=== PATIENT | male | born 1955 | race Caucasian/White ===

== ENCOUNTER 2022-12-11 09:23 | Emergency (ER) | payer OTHER ==
--- OUTSIDE RECORDS SUMMARY | 2022-12-11 09:40 | XMS REPORT | Continuity of Care Document ---
:1955 Author Organization [facility] t Address [address] [place] [address] Care Team Providers Name Role Phone JONH FOURNIER Primary Care Physician Unavailable Nicolas Flores Attending Clinician Unavailable DR JONH FOURNIER Attending Clinician Unavailable [phone] Attending Clinician Unavailable JOSE ANTONIO PONCE Attending Clinician Unavailable JAN CRAIN Attending Clinician Unavailable MD JAN CRAIN Attending Clinician Unavailable DR JONH FOURNIER Admitting Clinician Unavailable JOSE ANTONIO PONCE Admitting Clinician Unavailable YANNI UMANZOR Admitting Clinician Unavailable MD YANNI UMANZOR Admitting Clinician Unavailable Payers Payer Name Policy Type Policy Number Effective Date Expiration Date S carmenza MEDICARE - OP [id number] MEDICARE - OP [id number] Problems Condition Condition Condition Status Onset Resolution Last Treating Co mments Source Name Details Category Date Date Treatment Clinician Date COVID-19 COVID-19 Disease Active Meth[facility] di virus virus - st detected detected 00:00: Hospit a 00 l COVID-19 COVID-19 Disease Active Meth[facility] di virus virus 11-13 st infection infection 00:00: Hosp fadumo 00 l Pneumonia Pneumonia Disease Active Met hodi due to due to 11-09 st COVID-19 COVID-19 00:00: Hospit a virus virus 00 l Allergies, Adverse Reactions, Alerts Allergy Allergy Status Severity Reaction(s) Onset Inactive Treating Comm ents Source Name Type Date Date Clinician No Known DA Active U 2020-10 [facility] Drug 0-15 Allergie 00:00: s 00 No Known DA Active U 2020-10 [facility] Drug 0-01 Allergie 00:00: s 00 Unable DA Active U [facility] to 9-30 Assess 00:00: 00 Social History Social Habit Start Date Stop Date Quantity Comments Source History SDOH [facility] History SDOH [facility] Frequency Hospita l History SDCA [facility] Drinks Alcohol intake 2020-11-13 2020-11-13 Current drinker [facility] 00:00:00 00:00:00 of alcohol Hospital (finding) Tobacco use and 2020-11-09 2020-11-09 Smokeless tobacco [facility] exposure 00:00:00 00:00:00 non-user Hospital Alcohol Comment 2020-11-09 2020-11-09 "a couple beers Meth odist 00:00:00 00:00:00 2-3 days per Hospital week" Sex Ass[birth year] At [birth year] [facility] 00:00:00 00:00:00 Hospital Smoking Status Start Date Stop Date Source Never smoked tobacco [facility] Medications Ordered Filled Start Stop Current Ordering Indication Dosage Frequency Signature Comments Components Source Medication Medication Date Date Medication? Clinician (SIG) Name Name ezetimibe Yes 10mg QD Take 10 mg Me [facility] (ZETIA) 10 1-[address] mg tablet 13:52: daily. Hospit a 23 l prasterone, Yes 50mg QD Take 50 mg Methodi dhea, 1-[address] (DHEA) 50 13:52: daily. Hospit a mg capsule 23 l cyanocobala Yes 1000ug Q7D Inject Me [facility] min 1,000 1-25 1,[address] mcg/mL 13:52: into the Hospita injection 23 shoulder, l thigh, or buttocks once a week. wednesdays testosteron Yes 1mL Q7D Inject 1 [facility] e cypionate 1-[address] 200 mg/mL 13:52: the Hospita kit 23 shoulder, l thigh, or buttocks once a week. ascorbic Yes 3000mg QD Take 3,000 M ethodi acid 1-[address] (VITAMIN C 13:52: mouth Hospit a ORAL) 23 daily. l diclofenac Yes Apply Method i (VOLTAREN) 1-[address] 1 % gel 13:52: as needed Hospi ta 23 (arthritis l ). albuterol Yes 2{puff} Q.[id number] Inhale 2 Methodi (PROAIR 1-[id number] HFA) 90 13:52: 67D every 1 Hospita mcg/actuati 23 (one) l on inhaler hour. Prn thyroid, Yes 30mg QD Take 30 mg Met hodi pork, 1-[address] ([place] 13:52: daily. Hospita Thyroid) 30 23 l mg tablet acetylcyste Yes 600mg Q.5D Take 600 M ethodi ine (NAC) 1-[address] 600 mg 13:52: mouth 2 Hospita capsule 23 (two) l times a day. diphenhydra Yes 30mL QD Take 30 mL Methodi mine HCl 1-[address] (ZZZQUIL 13:52: nightly. Hospi ta ORAL) 23 l LETROZOLE Yes 1mg Take 1 mg Met hodi ORAL 1-[address] 13:52: daily. Hospita 23 l ezetimibe Yes 10mg QD Take 10 mg Me thodi (ZETIA) 10 1-[address] mg tablet 13:52: daily. Hospit a 23 l prasterone, Yes 50mg QD Take 50 mg Methodi dhea, 1-[address] (DHEA) 50 13:52: daily. Hospit a mg capsule 23 l cyanocobala Yes 1000ug Q7D Inject Me thodi min 1,000 1-25 1,[address] mcg/mL 13:52: into the Hospita injection 23 shoulder, l thigh, or buttocks once a week. wednesdays testosteron Yes 1mL Q7D Inject 1 Me [facility] e cypionate 1-[address] 200 mg/mL 13:52: the Hospita kit 23 shoulder, l thigh, or buttocks once a week. ascorbic Yes 3000mg QD Take 3,000 M ethodi acid 1-[address] (VITAMIN C 13:52: mouth Hospit a ORAL) 23 daily. l diclofenac Yes Apply Method i (VOLTAREN) 1-[address] 1 % gel 13:52: as needed Hospi ta 23 (arthritis l ). albuterol Yes 2{puff} Q.25400803 Inhale 2 Methodi (PROAIR 1-[id number] HFA) 90 13:52: 67D every 1 Hospita mcg/actuati 23 (one) l on inhaler hour. Prn thyroid, Yes 30mg QD Take 30 mg Met hodi pork, 1-[address] ([place] 13:52: daily. Hospita Thyroid) 30 23 l mg tablet acetylcyste Yes 600mg Q.5D Take 600 M ethodi ine (NAC) 1-[address] 600 mg 13:52: mouth 2 Hospita capsule 23 (two) l times a day. diphenhydra Yes 30mL QD Take 30 mL Methodi mine HCl 1-[address] (ZZZQUIL 13:52: nightly. Hospi ta ORAL) 23 l LETROZOLE Yes 1mg Take 1 mg Met hodi ORAL 1-[address] 13:52: daily. Hospita 23 l ezetimibe Yes 10mg QD Take 10 mg Me [facility]odi (ZETIA) 10 1-[address] mg tablet 13:52: daily. Hospit a 23 l prasterone, Yes 50mg QD Take 50 mg Methodi dhea, 1-[address] (DHEA) 50 13:52: daily. Hospit a mg capsule 23 l cyanocobala Yes 1000ug Q7D Inject Me thodi min 1,000 1-25 1,[address] mcg/mL 13:52: into the Hospita injection 23 shoulder, l thigh, or buttocks once a week. wednesdays testosteron 2021-0 Yes 1mL Q7D Inject 1 Me thodi e cypionate 1-[address] 200 mg/mL 13:52: the Hospita kit 23 shoulder, l thigh, or buttocks once a week. ascorbic 0 Yes 3000mg QD Take 3,000 M ethodi acid 1-[address] (VITAMIN C 13:52: mouth Hospit a ORAL) 23 daily. l diclofenac 0 Yes Apply Method i (VOLTAREN) 1-[address] 1 % gel 13:52: as needed Hospi ta 23 (arthritis l ). albuterol 0 Yes 2{puff} Q.[id number] Inhale 2 Methodi (PROAIR 1-[id number] HFA) 90 13:52: 67D every 1 Hospita mcg/actuati 23 (one) l on inhaler hour. Prn thyroid, Yes 30mg QD Take 30 mg Met hodi pork, 1-[address] ([place] 13:52: daily. Hospita Thyroid) 30 23 l mg tablet acetylcyste 0 Yes 600mg Q.5D Take 600 M ethodi ine (NAC) 1-[address] 600 mg 13:52: mouth 2 Hospita capsule 23 (two) l times a day. diphenhydra 0 Yes 30mL QD Take 30 mL Methodi mine HCl 1-[address] (ZZZQUIL 13:52: nightly. Hospi ta ORAL) 23 l LETROZOLE Yes 1mg Take 1 mg Met hodi ORAL 1-[address] 13:52: daily. Hospita 23 l enoxaparin 0 Yes 30mg Q.5D Inject 0.3 M ethodi (LOVENOX) 1-24 mL ([address] 30 mg/0.3 00:00: total) Hospit a mL syringe 00 under the l skin every 12 (twelve) hours. enoxaparin 0 Yes 30mg Q.5D Inject 0.3 M ethodi (LOVENOX) 1-24 mL ([address] 30 mg/0.3 00:00: total) Hospit a mL syringe 00 under the l skin every 12 (twelve) hours. enoxaparin 0 Yes 30mg Q.5D Inject 0.3 M ethodi (LOVENOX) 1-24 mL ([address] 30 mg/0.3 00:00: total) Hospit a mL syringe 00 under the l skin every 12 (twelve) hours. dextrometho No 5mL Q4H Take 5 mL Methodi rphan-guaif 11-[address] enesin 00:00: 05:59 every 4 Hospita (ROBITUSSIN 00 :00 (four) l -DM) 10-100 hours as mg/5 mL needed for liquid cough for up to 30 days. guaiFENesin 2020- No 200mg Q4H Take 10 mL Methodi (ROBITUSSIN 11-13 ([address] ) 100 mg/5 00:00: 05:59 total) by H ospita mL syrup 00 :00 mouth l every 4 (four) hours as needed for congestion for up to 30 days. Immunizations Ordered Immunization Filled Immunization Date Status Commen ts Source Name Name FLUZONE HIGH-DOSE 2020-11-14 Completed [facility]ist 00:00:00 [facility] 2020-11-14 Completed [facility] 00:00:00 [facility] FLUZONE HIGH-DOSE PF 2020-11-14 Completed Meth odist 00:00:00 [facility] 2020-11-14 Completed [facility] 00:00:00 [facility] FLUZONE HIGH-DOSE PF 2020-11-14 Com[facility] 2020-[facility]-14 Completed [facility] 2020-11-13 Completed [facility] 00:00:00 [facility] 2020-11-13 Completed [facility] 00:00:00 [facility] 2020-11-13 Completed [facility] 00:00:00 [facility] 2020-11-12 Completed [facility] 00:00:00 [facility] 2020-11-12 Completed [facility] 00:00:00 [facility] 2020-11-12 Completed [facility] 00:00:00 [facility] 2020-11-11 Completed [facility] 00:00:00 [facility] 2020-11-11 Completed [facility] 00:00:00 [facility] 2020-11-11 Completed [facility] 00:00:00 Hospital Remdesivir 2020-11-10 Completed [facility] 00:00:00 Hospital Remdesivir 2020-11-10 Completed [facility] 00:00:00 Hospital Remdesivir 2020-11-10 Completed [facility] 00:00:00 Hospital Procedures This patient has no known procedures. Plan of Care Planned Activity Planned Date Details Comments Source Future Scheduled 2022-12-11 COVID-19 VACCINE (#1) [facility] Test 09:37:30 [code = COVID-19 VACCINE (#1)] Future Scheduled 2022-12-11 65+ [facility]30 VACCINE (1 - PCV) [code = 65+ PNEUMOCOCCAL VACCINE (1 - PCV)] Future Scheduled 2022-12-11 Hepatitis C screening [facility] Test 09:37:30 (procedure) [code = 371905211] Future Scheduled 2022-12-11 COLONOSCOPY SCREENING [facility] Test 09:37:30 [code = COLONOSCOPY SCREENING] Future Scheduled 2022-12-11 SHINGLES VACCINES (1 Met [facility] Test 09:37:30 of 2) [code = SHINGLES VACCINES (1 of 2)] Future Scheduled 2022-12-11 INFLUENZA VACCINE Method [facility] Test 09:37:30 [code = INFLUENZA VACCINE] Future Scheduled 2022-10-17 COVID-19 VACCINE (#1) [facility] Test 09:24:45 [code = COVID-19 VACCINE (#1)] Future Scheduled 2022-10-17 65+ [facility]CCAL [facility] Test 09:24:45 VACCINE (1 - PCV) [code = 65+ PNEUMOCOCCAL VACCINE (1 - PCV)] Future Scheduled 2022-10-17 Hepatitis C screening [facility] Test 09:24:45 (procedure) [code = 407493973] Future Scheduled 2022-10-17 COLONOSCOPY SCREENING [facility] Test 09:24:45 [code = COLONOSCOPY SCREENING] Future Scheduled 2022-10-17 SHINGLES VACCINES (1 Met [facility] Test 09:24:45 of 2) [code = SHINGLES VACCINES (1 of 2)] Future Scheduled 2022-10-17 INFLUENZA VACCINE [facility] Test 09:24:45 [code = INFLUENZA VACCINE] Future Scheduled 2021-10-12 COVID-19 VACCINE (1) Met [facility] Test 13:39:44 [code = COVID-19 VACCINE (1)] Future Scheduled 2021-10-12 Hepatitis C screening [facility] Test 13:39:44 (procedure) [code = 068030181] Future Scheduled 2021-10-12 COLONOSCOPY SCREENING [facility] Test 13:39:44 [code = COLONOSCOPY SCREENING] Future Scheduled 2021-10-12 SHINGLES VACCINES (#1) [facility] Test 13:39:44 [code = SHINGLES VACCINES (#1)] Future Scheduled 2021-10-12 65+ PNEUMOCOCCAL [facility] Test 13:39:44 VACCINE (1 of 1 - PPSV23) [code = 65+ PNEUMOCOCCAL VACCINE (1 of 1 - PPSV23)] Future Scheduled 2021-10-12 INFLUENZA VACCINE [facility] Test 13:39:44 [code = INFLUENZA VACCINE] Encounters Start End Encounter Admission Attending Care Care Encounter Source Date/Time Date/Time Type Type Clinicians Facility Department ID 2021-08-05 Inpatient Nicolas Flores [facility] [id number] [facility] 20:30:00 47 2021-07-22 Inpatient Elective Nicolas Flores [facility] [id number] [facility] 15:30:00 55 2022-10-17 2022-10-17 Out[facility] [id number] [place] 09:23:00 09:23:00 [id number] [facility] 2022-02-13 2022-02-13 Out[facility] [id number] [place] 09:40:00 09:40:00 [id number] [facility] 2022-01-25 2022-01-25 Out[facility] [id number] [place] 07:59:00 07:59:00 [id number] [facility] 2020-11-13 2020-11-15 [facility] [id number] [place] [address] 00:00:00 00:00:00 JOSE ANTONIO [address] 2020-11-09 2020-11-13 [facility] [id number] [address] [place] 00:00:00 00:00:00 JAN Hebert [facility] Results Test Description Test Time Test Comments Results Result Comments Source SARS-CoV-2 (COVID-19) IgG Ab [Presence] in Serum or Pl asma by 2020-11-11 06:55:00 Immunoassay Test Item Value Reference Range Interpretation Comme nts SARS-CoV-2 (COVID-19) IgG Ab [Presence] in Serum or Plasma by Not d etected Immunoassay (test code = 92014-1) [facility] RNA [Presence] in Respiratory specimen by ELIEZER with probe [id number] 03:19:41 Test Item Value Reference Range Interpretation Comments SARS-CoV-2 (COVID-19) RNA [Presence] Detected Not-Detected in Respiratory specimen by ELIEZER with probe detection (test code = 99304-2) [facility]
--- NOTE | 2022-12-11 10:10 | RAD REPORT ---
EXAM DESCRIPTION: RAD - Shoulder Right 2 View - 12/11/2022 9:56 am CLINICAL HISTORY: Right shoulder pain FINDINGS: No fracture or dislocation is seen. The subchondral cysts within the humeral head. Mild gl enohumeral joint space narrowing
--- NOTE | 2022-12-11 10:20 | EDPHYS ---
Physician Documentation [facility] Name: Redd Altman Age: 67 yrs Sex: Male : 1955 Arrival Date: 12/11/2022 Time: 09:30 Bed 10 Private MD: ED Physician Madan Merritt HPI: 12/11 10:19 This 67 yrs old Male presents to ER via Ambulatory with complaints of Shoulder Injury. kb 10:19 The patient or guardian complains of pain, that is acute. right shoulder. Context: The kb problem was sustained outdoors, resulted from a fall, Playing soccer with grandson and he accidentally stepped on the soccer ball causing him to fall, The patient experiences decreased range of motion, The patient reports no obvious deformity. Onset: The symptoms/episode began/occurred 3 day(s) ago. Modifying factors: the symptoms are alleviated by nothing. The symptoms are aggravated by movement. Associated signs and symptoms: The patient has no apparent associated signs or symptoms. Severity of symptoms: At their worst the symptoms were moderate, in the emergency department the symptoms are unchanged. Treatment prior to arrival includes: no previous treatment. The patient has not experienced similar symptoms in the past. The patient has not recently seen a physician. Historical: - Allergies: 10:12 No Known Allergies; jl7 - Home Meds: 10:12 None [Active]; jl7 - PMHx: 10:12 RA; Atrial fibrillation; jl7 - PSHx: 10:12 Tonsillectomy; Appendectomy; cardiac ablation; jl7 - Immunization history:: Adult Immunizations unknown. - Social history:: Smoking status: unknown. ROS: 10:15 Constitutional: Negative for fever, chills, and weight loss. kb 10:15 MS/extremity: Positive for decreased range of motion, pain, tenderness, of the anterior aspect of right shoulder and posterior aspect of right shoulder. 10:15 All other systems are negative. Exam: 10:16 Constitutional: This is a well developed, well nourished patient who is awake, alert, kb and in no acute distress. Head/Face: Normocephalic, atraumatic. ENT: Moist Mucous membranes Cardiovascular: Regular rate and rhythm with a normal S1 and S2. No gallops, murmurs, or rubs. No pulse deficits. Respiratory: Respirations even and unlabored. No increased work of breathing. Talking in full sentences Abdomen/GI: Soft, non-tender. No distention Skin: Warm, dry with normal turgor. Normal color. Neuro: Awake and alert, GCS 15, oriented to person, place, time, and situation. Moves all extremities. Normal gait. Psych: Awake, alert, with orientation to person, place and time. Behavior, mood, and affect are within normal limits. 10:16 Musculoskeletal/extremity: Extremities: grossly normal except: noted in the posterior aspect of right shoulder and anterior aspect of right shoulder: decreased ROM, pain, tenderness, ROM: limited active range of motion due to pain, in the posterior aspect of right shoulder and anterior aspect of right shoulder, Circulation is intact in all extremities. Sensation intact. Vital Signs: 10:10 BP 134 / 77; Pulse 69; Resp 17; Temp 99; Pulse Ox 95% ; Pain 3/10; jl7 MDM: 09:40 Patient medically screened. kb 10:16 Data reviewed: vital signs, nurses notes. kb 10:17 Differential diagnosis: Anterior dislocation with fracture, Anterior dislocation kb without fracture, Posterior dislocation with fracture, Posterior dislocation without fracture, humeral head fracture. Counseling: I had a detailed discussion with the patient and/or guardian regarding: the historical points, exam findings, and any diagnostic results supporting the discharge/admit diagnosis, radiology results, the need for outpatient follow up, a orthopedic surgeon, to return to the emergency department if symptoms worsen or persist or if there are any questions or concerns that arise at home. Special discussion: I discussed with the patient/guardian in detail that at this point there is no indication for admission to the hospital. It is understood, however, that if the symptoms persist or worsen the patient needs to return immediately for re-evaluation. Based on the history and exam findings, there is no indication for further emergent testing or inpatient evaluation. I discussed with the patient/guardian the need to see the orthopedic surgeon for further evaluation of the symptoms. ED course: Patient is a 67-year-old male who presents for right shoulder pain and decreased range of motion. States pain started on Sunday after he fell onto right shoulder. On exam patient has tenderness and decreased range of motion of right shoulder, no obvious deformity swelling or erythema. X-ray of the shoulder completed and does not reveal an fracture. Patient states he has already spoken to an orthopedic surgeon and will follow-up with him but was told to come to the ER for x-ray.. 12/11 09:41 Order name: Shoulder Right (2 View) XRAY kb 12/11 10:11 Order name: RAD; Complete Time: 10:11 EDMS 12/11 10:12 Order name: Sling; Complete Time: 10:34 kb Administered Medications: 10:25 Not Given (Patient Refused): Ketorolac 30 mg IM once ss Disposition: 11:01 Co-signature as Attending Physician, Madan Merritt MD I reviewed the patient's care rn provided by the Advanced Practice Provider and agree with the diagnosis and treatment plan. Disposition Summary: 12/11/22 10:20 Discharge Ordered Location: Home kb Condition: Stable kb Diagnosis - Pain in right shoulder kb Followup: kb - With: Emergency Department - When: As needed - Reason: Worsening of condition Followup: kb - With: Private Physician - When: 2 - 3 days - Reason: Recheck today's complaints, Continuance of care, Re-evaluation by your physician Discharge Instructions: - Discharge Summary Sheet kb - Musculoskeletal Pain kb - Shoulder Pain, [id number] kb Forms: - Medication Reconciliation Form kb - Thank You Letter kb - Antibiotic Education kb - Prescription Opioid Use kb Prescriptions: - orphenadrine citrate 100 mg Oral Tablet Sustained Release - take 1 tablet by ORAL route 2 times per day As needed; 20 tablet; Refills: 0, kb Product Selection Permitted Signatures: Dispatcher [employer] EDFL Lois Millard, NURSING HOME DIRECTOR-C NURSING HOME DIRECTOR-Madan Chavez MD MD rn Leal, Jahala, RN RN jl7 Smirch, Shelby RN ss Corrections: (The following items were deleted from the chart) 10: 10:12 PMHx: None; jl7 jl7 10: 10:12 PSHx: None; ayaka jl7 10:13 10:12 PSHx: Appendectomy; melanie7 jl7
--- NOTE | 2022-12-11 10:20 | ER ---
Nurse's Notes [facility] Name: Redd Altman Age: 67 yrs Sex: Male : 1955 Arrival Date: 12/11/2022 Time: 09:30 Bed 10 Private MD: Diagnosis: Pain in right shoulder Presentation: 12/11 10:10 Chief complaint: Patient states: Right shoulder pain post fall x 2 days. Coronavirus jl7 screen: At this time, the client does not indicate any symptoms associated with coronavirus-19. Ebola Screen: No symptoms or risks identified at this time. Initial Sepsis Screen: Does the patient meet any 2 criteria? No. Patient's initial sepsis screen is negative. Does the patient have a suspected source of infection? No. Patient's initial sepsis screen is negative. Risk Assessment: Do you want to hurt yourself or someone else? Patient reports no desire to harm self or others. Onset of symptoms was December 09, 2022. 10:10 Method Of Arrival: Ambulatory jl 10:10 Acuity: GOLDEN 4 jl7 Historical: - Allergies: 10:12 No Known Allergies; jl7 - Home Meds: 10:12 None [Active]; jl7 - PMHx: 10:12 RA; Atrial fibrillation; jl7 - PSHx: 10:12 Tonsillectomy; Appendectomy; cardiac ablation; jl7 - Immunization history:: Adult Immunizations unknown. - Social history:: Smoking status: unknown. Screenin:34 [facility] ED Fall Risk Assessment (Adult) History of falling in the last 3 months, ss including since admission No falls in past 3 months (0 pts). Abuse screen: Denies threats or abuse. Denies injuries from another. Nutritional screening: No deficits noted. Tuberculosis screening: Never had TB. Assessment: 10:30 General: Appears in no apparent distress. comfortable, Behavior is calm, cooperative. ss Pain: Complains of pain in right shoulder, R anterior chest wall Pain currently is 3 out of 10 on a pain scale. Neuro: Level of Consciousness is awake, alert, obeys commands. Respiratory: Airway is patent Respiratory effort is even, unlabored, Respiratory pattern is regular, symmetrical. EENT: Nares are clear. Derm: Skin is intact, is healthy with good turgor, Skin is pink, warm \T\ dry. normal. Musculoskeletal: Circulation, motion, and sensation intact. Range of motion: intact in all extremities. Vital Signs: 10:10 BP 134 / 77; Pulse 69; Resp 17; Temp 99; Pulse Ox 95% ; Pain 3/10; jl7 ED Course: 09:30 Patient arrived in ED. rg4 09:34 Lois Millard FNP-C is [facility]. kb 09:34 Madan Merritt MD is Attending Physician. kb 10:11 Triage completed. jl7 10:12 Arm band placed on right wrist. Patient placed in waiting room, Patient notified of jl7 wait time. 10:33 Carole Bañuelos, RN is Primary Nurse. ss 10:34 Patient has correct armband on for positive identification. ss 10:34 No provider procedures requiring assistance completed. Patient did not have IV access ss during this emergency room visit. Sling applied to right arm. Administered Medications: 10:25 Not Given (Patient Refused): Ketorolac 30 mg IM once ss Medication: 10:30 VIS not applicable for this client. ss Outcome: 10:20 Discharge ordered by . kb 10:34 Discharged to home ambulatory. ss 10:34 Condition: good 10:34 Discharge instructions given to patient, Instructed on discharge instructions, follow up and referral plans. Demonstrated understanding of instructions, follow-up care, Prescriptions given X 1. 10:35 Patient left the ED. ss Signatures: Lois Millard FNP-C AT RISK SPECIALIST-Ckb Carole Bañuelos, RN RN Bibiana Hernandez rg4 Terrence Reece RN RN jl7 Corrections: (The following items were deleted from the chart) 10:13 10:12 PMHx: None; jl7 jl7 10:13 10:12 PSHx: None; jl7 jl7 10:13 10:12 PSHx: Appendectomy; jl7 jl7
[2022-12-11 10:41] VITALS: BP 134/77; TEMP 99; O2SAT 95
== END 2022-12-11 10:35 | disposition home or self-care (01) ==
LOC: ER 09:23
DX: M25.511 Pain in right shoulder (principal)
CPT/HCPCS: 99283